=== PATIENT | male | born 1960 | race Caucasian/White ===

== ENCOUNTER 2022-05-20 06:04 | Day surgery (SDC) | payer BC ==
[~2022-05-20] VITALS: Ht 188 cm; Wt 112.0 kg
[2022-05-20] MEDS ORDERED: Aspir 8181 MG PO (06:32)
[2022-05-20] MEDS ORDERED: OLME5TAB PO (06:32)
[2022-05-20] MEDS ORDERED: HYDCOR10 PO (06:32)
[2022-05-20] MEDS ORDERED: ATOR10 PO (06:32)
[2022-05-20] MEDS ORDERED: SUMA25 PO (06:33)
--- NOTE | 2022-05-20 07:44 | NUR ---
pt back to recovery from lab. pt [id number]. pt sitting up in chair.
--- NOTE | 2022-05-20 08:44 | NUR ---
TR BAND HAS BEEN FULLY DEFLATED, NO BLEEDING OR SWELLING AT SITE. PT EATING BREAKFAST, DENIES ANY PAIN OR DISCOMFORT. VSS.
--- NOTE | 2022-05-20 09:22 | NUR ---
pt given dc instructions and verbalized understanding. iv out. pt changed into clothes. cloth dot placed. arm board applied. sling applied. pt taken to [facility] via [facility] where will pick pt up.
== END 2022-05-20 09:10 | disposition home or self-care (01) ==
LOC: MHTC 06:04
DX: R07.2 Precordial pain (principal); I49.3 Ventricular premature depolarization; R94.39 Abnormal result of other cardiovascular function study; I10 Essential (primary) hypertension; E78.5 Hyperlipidemia, unspecified; U07.1 COVID-19; I08.1 Rheumatic disorders of both mitral and tricuspid valves; K21.9 Gastro-esophageal reflux disease without esophagitis; E66.9 Obesity, unspecified; E78.00 Pure hypercholesterolemia, unspecified; Z79.82 Long term (current) use of aspirin; Z87.891 Personal history of nicotine dependence
CPT/HCPCS: 76937; 93454; 99152; 99153; A9270; C1769; C1887; C1894; J1644; J2250; J3010; J7030; J7040; Q9967

== ENCOUNTER → 2022-08-28 | Outpatient (CLI) | payer BC ==
[~2022-08-28] MED LIST: ATOR10 PO; Aspir 8181 MG PO; HYDCOR10 PO; OLME5TAB PO; SUMA25 PO
[2022-08-28 11:05] LABS: Albumin, Blood 3.7 g/dL (3.4-5.0); Albumin/Globulin Ratio 1.1 (0.8-1.8); Bilirubin, Total 0.9 mg/dL (0.1-1.0); Bun/Creatinine Ratio 16.2 (12.0-20.0); Calcium, Blood 8.6 mg/dL (8.5-10.1); Creatinine, Blood 1.11 mg/dL (0.60-1.20); Globulin, Blood 3.3 g/dL (2.2-4.0); Potassium, Blood 3.6 mmol/L (3.5-5.5)
== END | disposition home or self-care (01) ==
LOC: LAB SHORT 06:26 → LAB 06:26
PROVIDERS: Internal Medicine Endocrinology, Diabetes & Metabolism
DX: E27.40 Unspecified adrenocortical insufficiency (principal)
CPT/HCPCS: 36415; 80053